=== PATIENT | male | born 1955 | race Caucasian/White ===

== ENCOUNTER 2017-10-09 20:38 | Emergency (ER) | payer OTHER ==
[2017-10-09] MEDS: SOD CHLORIDE 0.9% 1,000 ML IV (21:50)
[2017-10-09] MEDS: ONDANSETRON 4 MG INJ IV (21:51)
[2017-10-09] MEDS: HYDROmorphONE 0.5 MG/0.5 ML SYG IV (21:52)
[2017-10-09 22:06] LABS: ADD MAN DIFF? NO
[2017-10-09 22:08] LABS: WHITE BLOOD COUNT 15.1 10^3/ul (4.8-10.8)
[2017-10-09 22:08] LABS: BASOPHILS % 0.1 % (0.0-2.0); EOSINOPHILS % 0.1 % (0.0-7.0); HEMOGLOBIN 16.5 g/dl (14.0-18.0); LYMPHOCYTES # 1.2 10^3/ul (0.8-2.9); LYMPHOCYTES % 7.9 % (15.0-51.0); MEAN CORPUSCULAR HEMOGLOBIN 28.8 pg (29.0-33.0); MEAN CORPUSCULAR HGB CONC 35.1 g/dl (32.0-37.0); MEAN PLATELET VOLUME 8.5 fl (7.4-10.4); MONOCYTE # 0.6 10^3/ul (0.3-0.9); MONOCYTES % 4.2 % (0.0-11.0); NEUTROPHIL # 13.1 10^3/ul (1.6-7.5); NEUTROPHILS % 87.1 % (39.0-77.0); PLATELET COUNT 220 10^3/UL (140-415); RED BLOOD COUNT 5.73 10^6/ul (4.70-6.10); RED CELL DISTRIBUTION WIDTH 12.3 % (11.5-14.5)
[2017-10-09 22:17] LABS: ALANINE AMINOTRANSFERASE 37 IU/L (13-69); ALBUMIN 4.8 g/dl (3.3-4.9); ALBUMIN/GLOBULIN RATIO 1.45; ALKALINE PHOSPHATASE 108 IU/L (42-121); ANION GAP 20 (8-16); ASPARTATE AMINO TRANSFERASE 21 IU/L (15-46); BILIRUBIN,INDIRECT 0.9 mg/dl (0-1.1); BILIRUBIN,TOTAL 0.9 mg/dl (0.2-1.3); BLOOD UREA NITROGEN 17 mg/dl (7-20); CALCIUM 9.5 mg/dl (8.4-10.2); CARBON DIOXIDE 24 mmol/L (21-31); CHLORIDE 105 mmol/L (97-110); CREATININE 0.88 mg/dl (0.61-1.24); GLUCOSE 129 mg/dl (70-220); LIPASE 53 U/L (23-300); POTASSIUM 4.6 mmol/L (3.5-5.1); SODIUM 144 mmol/L (135-144); TOTAL PROTEIN 8.1 g/dl (6.1-8.1)
[2017-10-09] MEDS: SOD CHLORIDE 0.9% 100 ML (22:42)
[2017-10-09] MEDS: IOHEXOL 300MG/ML 150 ML BTL (22:43)
[2017-10-10] MEDS: ERTAPENEM SODIUM 0.5 GM in SOD CHLORIDE 0.9% 100 ML IVPB (00:11)
[2017-10-10] MEDS: SOD CHLORIDE 0.9% 1,000 ML IV (00:13)
[2017-10-10] MEDS ORDERED: ONDANSETRON 4 MG INJ IV ×2 (00:30→10:00)
[2017-10-10] MEDS ORDERED: ACETAMINOPHEN 325 MG TAB PO (00:30)
[2017-10-10] MEDS ORDERED: morphine 4 MG/ML VIAL (01:37)
[2017-10-10] MEDS: morphine 4 MG/ML VIAL IV (01:49)
[2017-10-10] MEDS: D5W-0.45 NACL + KCL 10 MEQ 1,000 ML IV (05:12)
[2017-10-10] MEDS: morphine 2 MG INJ IV ×2 (05:19→08:29)
[2017-10-10] MEDS: ONDANSETRON 4 MG INJ IV (05:19)
[2017-10-10] MEDS: PIPER-TAZO 3.375 GM IV (PMX) 100 ML IVPB (06:06)
[2017-10-10] MEDS ORDERED: hydrALAzine 20 MG INJ IV ×2 (06:30→10:00)
[2017-10-10] MEDS ORDERED: HYDROmorphONE (0.2 MG/ML) 10ML SYG IV (10:00)
[2017-10-10] MEDS ORDERED: LABETALOL HCL 20MG INJ IV (10:00)
[2017-10-10] MEDS ORDERED: FENTAnyl 50 MCG/ML VIAL IV (10:00)
[2017-10-10] MEDS ORDERED: MEPERIDINE 25 MG INJ IV (10:00)
[2017-10-10] MEDS ORDERED: PROCHLORPERAZINE 10 MG INJ IV (10:00)
[2017-10-10] MEDS ORDERED: DIPHENHYDRAMINE 50 MG INJ IV (10:00)
[2017-10-10] MEDS ORDERED: MIDAZOLAM 1 MG/ML 2 ML INJ (10:06)
[2017-10-10] MEDS ORDERED: ROCURONIUM 50 MG INJ (10:06)
[2017-10-10] MEDS ORDERED: LIDOCAINE 2% (SDV) 5 ML INJ (10:06)
[2017-10-10] MEDS ORDERED: PROPOFOL 20 ML (10:06)
[2017-10-10] MEDS ORDERED: SUCCINYLCHOLINE CHLORIDE 100 MG/5 ML SYG IV (10:06)
[2017-10-10] MEDS ORDERED: FENTAnyl 50 MCG/ML VIAL ×2 (10:07→11:19)
[2017-10-10] MEDS ORDERED: PHENYLephrine (100 MCG/ML) 5ML SYG (10:19)
[2017-10-10] MEDS ORDERED: ACETAMINOPHEN 1000MG/100ML IV 100 ML (10:22)
[2017-10-10] MEDS ORDERED: ONDANSETRON 4 MG INJ (10:27)
[2017-10-10] MEDS ORDERED: FAMOTIDINE 20 MG INJ (10:27)
[2017-10-10] MEDS ORDERED: DEXAMETHASONE 4 MG/ML 1 ML INJ (10:27)
[2017-10-10] MEDS: BUPIVACAINE 0.25% (MPF) 30 ML INJ (11:03)
[2017-10-10] MEDS ORDERED: SUGAMMADEX SODIUM 200 MG/2 ML VIAL IV (11:13)
[2017-10-10] MEDS ORDERED: ROPIVACAINE 0.5 % 30 ML VIAL (11:14)
[2017-10-10] MEDS ORDERED: DOCUSATE SODIUM 100 MG CAP PO (11:30)
[2017-10-10] MEDS ORDERED: HYDROmorphONE 1 MG/ML SYG IV (11:30)
[2017-10-10] MEDS ORDERED: BISACODYL 10 MG SUPP PR (11:30)
[2017-10-10] MEDS ORDERED: NA PHOSPHATE/BIPHOS 133 ML ENEMA PR (11:30)
[2017-10-10] MEDS ORDERED: HYDROCODONE/APAP (5/325) TAB PO ×2 (11:30)
[2017-10-10] MEDS ORDERED: HYDROmorphONE 0.5 MG/0.5 ML SYG IV (11:30)
[2017-10-10] MEDS: LISINOPRIL 20 MG TAB PO (14:57)
[2017-10-10 15:07] LABS: ADD MAN DIFF? NO
[2017-10-10 15:11] LABS: WHITE BLOOD COUNT 19.3 10^3/ul (4.8-10.8)
[2017-10-10 15:11] LABS: BASOPHILS % 0.2 % (0.0-2.0); HEMOGLOBIN 14.6 g/dl (14.0-18.0); LYMPHOCYTES # 1.2 10^3/ul (0.8-2.9); LYMPHOCYTES % 6.2 % (15.0-51.0); MEAN CORPUSCULAR HEMOGLOBIN 28.9 pg (29.0-33.0); MEAN CORPUSCULAR HGB CONC 34.8 g/dl (32.0-37.0); MEAN PLATELET VOLUME 8.3 fl (7.4-10.4); MONOCYTE # 1.3 10^3/ul (0.3-0.9); MONOCYTES % 6.6 % (0.0-11.0); NEUTROPHIL # 16.7 10^3/ul (1.6-7.5); NEUTROPHILS % 86.6 % (39.0-77.0); PLATELET COUNT 190 10^3/UL (140-415); RED BLOOD COUNT 5.06 10^6/ul (4.70-6.10); RED CELL DISTRIBUTION WIDTH 12.8 % (11.5-14.5)
[2017-10-10 15:30] LABS: ALANINE AMINOTRANSFERASE 27 IU/L (13-69); ALBUMIN 4.3 g/dl (3.3-4.9); ALBUMIN/GLOBULIN RATIO 1.53; ALKALINE PHOSPHATASE 75 IU/L (42-121); ANION GAP 17 (8-16); ASPARTATE AMINO TRANSFERASE 20 IU/L (15-46); BILIRUBIN,INDIRECT 0.9 mg/dl (0-1.1); BILIRUBIN,TOTAL 0.9 mg/dl (0.2-1.3); BLOOD UREA NITROGEN 16 mg/dl (7-20); CALCIUM 8.8 mg/dl (8.4-10.2); CARBON DIOXIDE 23 mmol/L (21-31); CHLORIDE 107 mmol/L (97-110); CREATININE 0.83 mg/dl (0.61-1.24); GLUCOSE 121 mg/dl (70-220); PHOSPHORUS 2.8 mg/dl (2.5-4.9); POTASSIUM 4.3 mmol/L (3.5-5.1); SODIUM 143 mmol/L (135-144); TOTAL PROTEIN 7.1 g/dl (6.1-8.1)
[2017-10-10] MEDS: FAMOTIDINE 20 MG TAB PO (20:49)
[2017-10-11 05:12] LABS: ADD MAN DIFF? NO
[2017-10-11 05:20] LABS: WHITE BLOOD COUNT 16.7 10^3/ul (4.8-10.8)
[2017-10-11 05:20] LABS: BASOPHILS % 0.1 % (0.0-2.0); EOSINOPHILS % 0.1 % (0.0-7.0); HEMATOCRIT 39.9 % (42.0-52.0); HEMOGLOBIN 13.6 g/dl (14.0-18.0); LYMPHOCYTES # 2.7 10^3/ul (0.8-2.9); LYMPHOCYTES % 16.4 % (15.0-51.0); MEAN CORPUSCULAR HEMOGLOBIN 28.6 pg (29.0-33.0); MEAN CORPUSCULAR HGB CONC 34.1 g/dl (32.0-37.0); MEAN CORPUSCULAR VOLUME 83.8 fl (82.0-101.0); MEAN PLATELET VOLUME 8.7 fl (7.4-10.4); MONOCYTE # 1.5 10^3/ul (0.3-0.9); MONOCYTES % 8.9 % (0.0-11.0); NEUTROPHIL # 12.4 10^3/ul (1.6-7.5); NEUTROPHILS % 74.2 % (39.0-77.0); PLATELET COUNT 171 10^3/UL (140-415); RED BLOOD COUNT 4.76 10^6/ul (4.70-6.10); RED CELL DISTRIBUTION WIDTH 12.5 % (11.5-14.5)
[2017-10-11 05:35] LABS: INR 1.08; PROTIME 14.1 Sec (11.9-14.9); PT RATIO 1.1
[2017-10-11 05:36] LABS: PARTIAL THROMBOPLASTIN TIME 33.4 Sec (25.0-35.0)
[2017-10-11 05:58] LABS: B-TYPE NATRIURETIC PEPTIDE 913 PG/ML (0-125)
[2017-10-11 06:00] LABS: ALANINE AMINOTRANSFERASE 28 IU/L (13-69); ALBUMIN 3.7 g/dl (3.3-4.9); ALBUMIN/GLOBULIN RATIO 1.32; ALKALINE PHOSPHATASE 64 IU/L (42-121); ANION GAP 17 (8-16); ASPARTATE AMINO TRANSFERASE 20 IU/L (15-46); BILIRUBIN,INDIRECT 0.7 mg/dl (0-1.1); BILIRUBIN,TOTAL 0.7 mg/dl (0.2-1.3); BLOOD UREA NITROGEN 18 mg/dl (7-20); CALCIUM 8.8 mg/dl (8.4-10.2); CARBON DIOXIDE 26 mmol/L (21-31); CHLORIDE 106 mmol/L (97-110); CREATININE 0.89 mg/dl (0.61-1.24); GLUCOSE 112 mg/dl (70-220); MAGNESIUM 2.2 mg/dl (1.7-2.5); PHOSPHORUS 2.6 mg/dl (2.5-4.9); POTASSIUM 4.2 mmol/L (3.5-5.1); SODIUM 145 mmol/L (135-144); TOTAL PROTEIN 6.5 g/dl (6.1-8.1)
[2017-10-11] MEDS: LISINOPRIL 20 MG TAB PO (08:41)
[2017-10-11] MEDS: ENOXAPARIN 40 MG/0.4 ML SYG SC (08:41)
== END 2017-10-11 12:44 | disposition home or self-care (01) ==
LOC: E/R 20:38 → PP2 10-10 00:11
DX: K35.80 Unspecified acute appendicitis (principal); I10 Essential (primary) hypertension; Z87.891 Personal history of nicotine dependence; E66.9 Obesity, unspecified; Z68.31 Body mass index [BMI] 31.0-31.9, adult
CPT/HCPCS: 36415; 74177; 80053; 83690; 83735; 83880; 84100; 85025; 85610; 85730; 88304; 96374; 96375; 99285-25; G0378

== ENCOUNTER 2017-11-12 15:39 | Outpatient (CLI) | payer OTHER | END 2017-11-12 15:57 | disposition home or self-care (01) | LOC: HPC 15:39 | DX: K37 Unspecified appendicitis (principal); I10 Essential (primary) hypertension; Z87.891 Personal history of nicotine dependence | CPT/HCPCS: Z7500 ==